=== PATIENT | female | born 1970 | race Caucasian/White ===

== ENCOUNTER → 2017-04-03 | Emergency (ER) | payer SELFPAY ==
[2017-04-03 18:21] VITALS: BP 165/132; PULSE 77; TEMP 98; BMI 25.0
--- NOTE | 2017-04-03 19:44 | PDOC ---
*Physical Exam - Vital Signs Last Vital Signs Temp Pulse Resp BP Pulse Ox 98 F 77 18 165/132 98 04/03/17 18:18 04/03/17 18:18 04/03/17 18:18 04/03/17 18:18 04/03/17 18:18 Medical Decision Making - Medical Decision Making 04/03/17 19:42 saw and examined pt with resident. Pt to get an Upper extremity Duplex to r/o DVT, as pt gets testosterone injection twice daily. *DC/Admit/Observation/Transfer Diagnosis at time of Disposition: Arm pain, right - Discharge Dispostion Disposition: HOME Condition at time of disposition: Stable Admit: No - Referrals Referrals: Yinka Westbrook MD [Staff Physician] - - Patient Instructions Printed Discharge Instructions: DI for Arm Pain Additional Instructions: Use Motrin or Tylenol for pain as needed. Follow up with your doctor or the doctor referred to you as needed as well.
--- NOTE | 2017-04-03 19:53 | PDOC ---
History of Present Illness - General Chief Complaint: Pain Stated Complaint: NUMBNESS Time Seen by Provider: 04/03/17 19:02 - History of Present Illness Initial Comments: 04/03/17 19:47 Patient is a 46 year old female with a history of undergoing testosterone injections who presents with right hand numbness, pain, and tingling. Patient reports right hand numbness, pain, and tingling beginning 2 weeks ago and progressively getting worse prompting her visit to the ED today. The patient can't describe the pain well, but states it is worsened with making a clenched fist and with use. She has not tried anything to relieve the pain. She states that she otherwise feels well. Past History - Past Medical History Allergies/Adverse Reactions: Allergies Allergy/AdvReac Type Severity Reaction Status Date / Time No Known Allergies Allergy Verified 04/03/17 18:21 Home Medications: Ambulatory Orders Ibuprofen [Motrin] 600 mg PO TID #30 tablet 04/03/17 Other medical history: TESTOSTERONE INJECTIONS - Psycho/Social/Smoking Cessation Hx Suicidal Ideation: No Smoking History: Never smoked Information on smoking cessation initiated: No Hx Alcohol Use: No Drug/Substance Use Hx: No Substance Use Type: None Review of Systems - Review of Systems Constitutional: No: Chills, Fever Respiratory: No: Cough, Shortness of Breath Cardiac (ROS): No: Chest Pain, Palpitations ABD/GI: No: Constipated, Diarrhea, Nausea, Vomiting : No: Dysuria Integumentary: No: Rash Neurological: Yes: Numbness, Tingling *Physical Exam - Vital Signs Last Vital Signs Temp Pulse Resp BP Pulse Ox 98 F 77 18 165/132 98 04/03/17 18:18 04/03/17 18:18 04/03/17 18:18 04/03/17 18:18 04/03/17 18:18 - Physical Exam General Appearance: Yes: Nourished. No: Apparent Distress HEENT: positive: Normal Voice Respiratory/Chest: positive: Lungs Clear, Normal Breath Sounds. negative: Rales , Rhonchi, Wheezing Cardiovascular: positive: Regular Rhythm, Regular Rate. negative: Murmur, Gallop/S3, Gallop/S4 Gastrointestinal/Abdominal: negative: Guarding, Rebound, Tenderness Extremity: positive: Normal Capillary Refill, Normal Range of Motion, Other ( Light touch sensation intact in hand bilaterally. No extremity edema) Integumentary: positive: Normal Color, Dry, Warm Neurologic: positive: Fully Oriented, Alert, Normal Mood/Affect, Normal Response , Motor Strength 5/5 (5/5 strength in hands bilaterally) Medical Decision Making - Medical Decision Making 04/03/17 19:58 Patient is a 46 year old female currently undergoing testosterone injections who presents with right hand numbness, tingling, and pain. Given the patient's history of undergoing testosterone injections, it is possible that a DVT could be the cause of her symptoms and we will get a US to rule out DVT. Otherwise, her history and physical exam are most consistent with overuse muscle injury. 04/03/17 21:59 Patient's US is negative for DVT. We will discharge home. We discussed appropriate pain management with NSAIDS and ice for her muscle strain. *DC/Admit/Observation/Transfer Diagnosis at time of Disposition: Arm pain, right - Discharge Dispostion Disposition: HOME Condition at time of disposition: Stable - Prescriptions Prescriptions: Ibuprofen [Motrin] 600 mg PO TID #30 tablet - Referrals Referrals: Yinka Westbrook MD [Staff Physician] - - Patient Instructions Printed Discharge Instructions: DI for Arm Pain Additional Instructions: Use Motrin or Tylenol for pain as needed. Follow up with your doctor or the doctor referred to you as needed as well. - Attestations Physician Attestion: 04/03/17 20:47 I, Dr. Andrzej De Guzman, attest that this document has been prepared under my direction and personally reviewed by me in its entirety. I further attest, that it accurately reflects all work, treatment, procedures and medical decision -making performed by me.
== END | disposition home or self-care (01) ==
LOC: JER 18:15
DX: M79.601 Pain in right arm (principal); R20.0 Anesthesia of skin
CPT/HCPCS: 93971; 99282-25